=== PATIENT | male | born 1975 | race Two or more races ===

== ENCOUNTER 2022-03-01 09:59 | Emergency (ER) | payer OTHER ==
[~2022-03-01] VITALS: Ht 175.3 cm; Wt 122.5 kg
[2022-03-01] MEDS ORDERED: LOTRIMIN AF12 GM TOP (11:30)
== END 2022-03-01 11:45 | disposition home or self-care (01) ==
LOC: ER 09:59
DX: S91.202A Unspecified open wound of left great toe with damage to nail, initial encounter (principal); X58.XXXA Exposure to other specified factors, initial encounter; Y93.9 Activity, unspecified; Y92.89 Other specified places as the place of occurrence of the external cause; Y99.9 Unspecified external cause status; B35.1 Tinea unguium; Z91.013 Allergy to seafood